=== PATIENT | male | born 2000 | race Caucasian/White ===

== ENCOUNTER → 2024-11-25 | Outpatient (CLI) | payer BC, OTHER ==
[2024-11-25 15:09] LABS: BASO % 0.8 % (0.0-1.0); EOS # 0.1 10^3/uL (0.0-0.5); EOS % 2.7 % (0.0-3.0); HEMATOCRIT 44.6 % (42.0-52.0); HEMOGLOBIN 15.2 g/dl (13.5-17.5); LYMPH # 1.7 10^3/uL (1.5-5.0); LYMPH % 33.3 % (24.0-44.0); MEAN CORPUSCULAR HEMOGLOBIN 27.3 pg (27.0-33.0); MEAN CORPUSCULAR HGB CONC 34.1 g/dl (32.0-36.5); MEAN CORPUSCULAR VOLUME 80.1 fl (80.0-96.0); MONO # 0.4 10^3/uL (0.0-0.8); MONO % 7.3 % (2.0-8.0); NEUTROPHILS # 2.9 10^3/uL (1.5-8.5); NEUTROPHILS % 55.9 % (36.0-66.0); PLATELET COUNT, AUTOMATED 277 10^3/uL (150-450); RED BLOOD COUNT 5.57 10^6/uL (4.30-6.10); WHITE BLOOD COUNT 5.2 10^3/uL (4.0-10.0)
[2024-11-25 15:36] LABS: ALBUMIN 3.9 G/DL (3.2-5.2); ALKALINE PHOSPHATASE 79 U/L (40-129); ALT/SGPT 74 U/L (7.0-40); AST/SGOT 30 U/L (<34); BILIRUBIN,TOTAL 0.5 MG/DL (0.3-1.2); BLOOD UREA NITROGEN 14 MG/DL (9-23); CARBON DIOXIDE LEVEL 26 MMOL/L (20-31); CHLORIDE LEVEL 106 MMOL/L (98-107); CREATININE FOR GFR 0.77 MG/DL (0.70-1.30); GLOMERULAR FILTRATION RATE > 60.0 (>60); GLUCOSE, FASTING 102 MG/DL (60-100); MAGNESIUM LEVEL 1.9 MG/DL (1.8-2.4); SODIUM LEVEL 140 MMOL/L (136-145); TOTAL PROTEIN 7.5 G/DL (5.7-8.2)
[2024-11-25 15:38] LABS: TOTAL 25(OH) VITAMIN D 15.4 NG/ML (20.0-100.0)
== END ==
LOC: M EKG 14:04
PROVIDERS: ATTEND Nurse Practitioner Psychiatric/Mental Health
DX: F90.2 Attention-deficit hyperactivity disorder, combined type (principal); F43.20 Adjustment disorder, unspecified

== ENCOUNTER 2025-06-27 15:55 | Emergency (ER) | payer BC, OTHER ==
[~2025-06-27] VITALS: Ht 177.8 cm; Wt 105.3 kg
[2025-06-27] MEDS: NEOSPORIN TOP OINT 15 GM TOP ONE (17:25)
[2025-06-27 19:25] VITALS: BP 134/84; TEMP 98.5; O2SAT 98
[2025-06-30 23:22] LABS: BABESIA MICROTI PCR Not Detected (Not Detected)
[2025-07-02 17:38] LABS: LYME TOTAL ANTIBODY CIA <= 0.90 Index (<=0.90)
== END 2025-06-27 19:29 | disposition home or self-care (01) ==
LOC: M ED 15:55
DX: S20.462A Insect bite (nonvenomous) of left back wall of thorax, initial encounter (principal); W57.XXXA Bitten or stung by nonvenomous insect and other nonvenomous arthropods, initial encounter; Y92.9 Unspecified place or not applicable; Y93.9 Activity, unspecified; Y99.9 Unspecified external cause status